=== PATIENT | female | born 1980 | race Caucasian/White ===

== ENCOUNTER 2017-02-06 10:50 | Emergency (ER) | payer SELFPAY ==
[~2017-02-06] VITALS: Ht 165.1 cm; Wt 59.0 kg
[~2017-02-06 10:50] MED LIST: BACTRIM DS TAB1 EACH PO; NORCO 5-325 TA1 EACH PO; PERCOCET 5-3251 EACH PO; PRENATABS RX T1 EACH PO; ULTRAM50 MG PO; ZOLOFT25 MG PO; ZOLOFT50 MG PO
== END 2017-02-06 11:10 | disposition home or self-care (01) ==
LOC: ED 10:50
DX: S59.902A Unspecified injury of left elbow, initial encounter (principal); W00.0XXA Fall on same level due to ice and snow, initial encounter

== ENCOUNTER 2018-06-03 12:28 | Emergency (ER) | payer SELFPAY ==
[~2018-06-03] VITALS: Ht 165.1 cm; Wt 63.5 kg
== END 2018-06-03 12:40 | disposition home or self-care (01) ==
LOC: ED 12:28
DX: M79.671 Pain in right foot (principal)

== ENCOUNTER 2018-12-12 17:17 | Emergency (ER) | payer SELFPAY ==
[~2018-12-12] VITALS: Ht 165.1 cm; Wt 59.0 kg
[~2018-12-12 17:17] MED LIST changes: +CYCLOBENZAPRINE10 MG PO
[2018-12-12] MEDS ORDERED: TRAMADOL HCL50 MG PO (22:08)
== END 2018-12-12 22:20 | disposition home or self-care (01) ==
LOC: ED 17:17
DX: S51.011A Laceration without foreign body of right elbow, initial encounter (principal); S30.0XXA Contusion of lower back and pelvis, initial encounter; S50.312A Abrasion of left elbow, initial encounter; W10.9XXA Fall (on) (from) unspecified stairs and steps, initial encounter; Z88.0 Allergy status to penicillin; Z88.5 Allergy status to narcotic agent; Z88.8 Allergy status to other drugs, medicaments and biological substances; Z88.1 Allergy status to other antibiotic agents; F17.200 Nicotine dependence, unspecified, uncomplicated
CPT/HCPCS: 12002; 74177; 81001; 84703; 99284-25; 99406; J2405; J3010; Q9967

== ENCOUNTER 2019-06-19 00:10 | Emergency (ER) | payer SELFPAY ==
[~2019-06-19] VITALS: Ht 165.1 cm; Wt 59.0 kg
[~2019-06-19 00:10] MED LIST changes: +ISENTRESS400 MG PO; +TRAMADOL HCL50 MG PO; +TRUVADA 200 MG1 EACH PO; +ZOFRAN4 MG PO
--- NOTE | 2019-06-19 16:44 | EKG ---
[facility] [address] [facility] [place], [place] [address] Signed Normal sinus rhythm Cannot rule out Anterior infarct , age undetermined Abnormal ECG No previous ECGs available Confirmed by ARABELLA ANDRES MD ([id number]) on 06/19/2019 4:44:35 PM Electronically Signed By: ARABELLA ANDRES MD 06/19/19 1644 PATIENT NAME: HARRY BERG Electrocardiogram DATE OF : 78 PHYSICIAN: ARABELLA ANDRES MD REPORT #: [id number] REPORT IS CONFIDENTIAL AND NOT TO BE RELEASED WITHOUT AUTHORIZATION
== END 2019-06-19 02:39 | disposition home or self-care (01) ==
LOC: ED 00:10 → EDBD 00:11 → ED 02:39
PROC: 2W3KX1Z Immobilization of Left Finger using Splint (ICD-10-PCS; principal; 2019-06-19)
DX: T40.1X1A Poisoning by heroin, accidental (unintentional), initial encounter (principal); S62.002A Unspecified fracture of navicular [scaphoid] bone of left wrist, initial encounter for closed fracture; F17.200 Nicotine dependence, unspecified, uncomplicated; Z88.0 Allergy status to penicillin; Z88.5 Allergy status to narcotic agent; Z88.8 Allergy status to other drugs, medicaments and biological substances; W19.XXXA Unspecified fall, initial encounter
CPT/HCPCS: 29125; 71045; 73110; 80053; 83735; 84484; 84702; 85025; 93005; 93010; 99285-25; J7030